=== PATIENT | male | born 1935 | race Caucasian/White ===

== ENCOUNTER → 2017-01-05 | Outpatient (CLI) | payer MEDICARE ==
[~2017-01-05] MED LIST: BENICAR5 MG PO; CADUET 5 MG-101 EACH PO; ELIQUIS5 MG PO; EXELON1 EAC1 TD; LEVAQUIN500 MG PO; NAMENDA5 MG PO; SOTALOL80 MG PO; THYROXINE PO; TYLENOL W/CODEIN1 E1 PO; VITAMIN D1000 UNIT PO
[2017-01-05 11:56] LABS: HEMOGLOBIN 14.4 gm/dl (14.0-17.5); RED BLOOD COUNT 4.65 M/UL (4.20-5.50); WHITE BLOOD COUNT 6.6 K/UL (4.5-11.0)
[2017-01-05 12:05] LABS: BUN/CREATININE RATIO 17 (0-10)
== END ==
LOC: LAB 10:39
PROVIDERS: Internal Medicine Cardiovascular Disease
DX: R00.1 Bradycardia, unspecified (principal); I49.5 Sick sinus syndrome; I49.3 Ventricular premature depolarization; I48.0 Paroxysmal atrial fibrillation
CPT/HCPCS: 36415; 71020; 80048; 85025

== ENCOUNTER 2017-01-07 07:18 | Outpatient (CLI) | payer MEDICARE ==
[2017-01-07] MEDS ORDERED: VITAMIN D1000 UNIT PO (08:02)
[2017-01-07] MEDS ORDERED: THYROXINE PO (08:02)
[2017-01-07] MEDS ORDERED: ELIQUIS5 MG PO (08:03)
[2017-01-07] MEDS ORDERED: SOTALOL80 MG PO (08:03)
[2017-01-07] MEDS ORDERED: BENICAR5 MG PO (08:03)
[2017-01-07] MEDS ORDERED: NAMENDA5 MG PO (08:04)
[2017-01-07] MEDS ORDERED: CADUET 5 MG-101 EACH PO (08:04)
[2017-01-07] MEDS ORDERED: EXELON1 EAC1 TD (08:05)
[2017-01-08] MEDS ORDERED: TYLENOL W/CODEIN1 E1 PO (07:51)
[2017-01-08] MEDS ORDERED: LEVAQUIN500 MG PO (07:53)
== END 2017-01-08 08:45 | disposition home or self-care (01) ==
LOC: CATH 07:18 → PROG CARE 11:05 → CATH 01-08 08:45
DX: I49.5 Sick sinus syndrome (principal); I48.0 Paroxysmal atrial fibrillation; I49.3 Ventricular premature depolarization; I13.10 Hypertensive heart and chronic kidney disease without heart failure, with stage 1 through stage 4 chronic kidney disease, or unspecified chronic kidney disease; N18.2 Chronic kidney disease, stage 2 (mild); D63.1 Anemia in chronic kidney disease; I25.10 Atherosclerotic heart disease of native coronary artery without angina pectoris; E78.5 Hyperlipidemia, unspecified; E03.9 Hypothyroidism, unspecified; Z79.02 Long term (current) use of antithrombotics/antiplatelets; Z88.3 Allergy status to other anti-infective agents; Z88.8 Allergy status to other drugs, medicaments and biological substances; Z79.899 Other long term (current) drug therapy; R26.9 Unspecified abnormalities of gait and mobility; L57.0 Actinic keratosis; J30.9 Allergic rhinitis, unspecified; N40.1 Benign prostatic hyperplasia with lower urinary tract symptoms; N13.8 Other obstructive and reflux uropathy; N28.1 Cyst of kidney, acquired; F32.9 Major depressive disorder, single episode, unspecified; R41.3 Other amnesia; E55.9 Vitamin D deficiency, unspecified; N50.819 Testicular pain, unspecified; N50.89 Other specified disorders of the male genital organs; Z86.73 Personal history of transient ischemic attack (TIA), and cerebral infarction without residual deficits; F01.50 Vascular dementia, unspecified severity, without behavioral disturbance, psychotic disturbance, mood disturbance, and anxiety; E53.8 Deficiency of other specified B group vitamins; Z79.82 Long term (current) use of aspirin; Z85.828 Personal history of other malignant neoplasm of skin
CPT/HCPCS: 33208; 71010; 93005; C1785; C1898; J0690; J1200; J1644; J2250; J3010; J3370; J7040; Q9965

== ENCOUNTER → 2017-01-14 | Outpatient (CLI) | payer MEDICARE | LOC: US 16:30 | DX: M79.606 Pain in leg, unspecified (principal); Z88.2 Allergy status to sulfonamides; Z88.1 Allergy status to other antibiotic agents; Z88.8 Allergy status to other drugs, medicaments and biological substances | CPT/HCPCS: 93971 ==